=== PATIENT | female | born 2000 | race Hispanic/Latino ===

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

== ENCOUNTER 2021-03-18 16:10 | Emergency (ER) | payer MEDICAID ==
[~2021-03-18] VITALS: Ht 165.1 cm; Wt 72.6 kg
[2021-03-18 16:13] VITALS: BP 132/77
[2021-03-18] MEDS ORDERED: KETOROLAC 60 MG VIAL (30MG/ML) IM ONE (17:00)
[2021-03-18] MEDS ORDERED: ACET-2247 PO (17:12)
[2021-03-18] MEDS ORDERED: ACETAMINOPHEN 500 MG TABLET PO ONE (17:30)
== END 2021-03-18 17:22 | disposition home or self-care (01) ==
LOC: EDH 16:10
DX: R07.89 Other chest pain (principal); Z33.1 Pregnant state, incidental; Z79.1 Long term (current) use of non-steroidal anti-inflammatories (NSAID)
CPT/HCPCS: 81025; 99283; J1885

== ENCOUNTER 2022-01-13 12:52 | Emergency (ER) | payer MEDICAID ==
[~2022-01-13] VITALS: Ht 165.1 cm; Wt 90.3 kg
[~2022-01-13 12:52] MED LIST: ACET-2247 PO
[2022-01-13 13:27] LABS: BASOPHILS % (AUTO) 0.6 % (0.0-5.0); EOSINOPHILS % (AUTO) 2.7 % (0.0-8.0); HEMATOCRIT 36.1 % (36-48); LYMPHOCYTES % (AUTO) 37.8 % (21.0-51.0); MEAN CORPUSCULAR HEMOGLOBIN 22.8 pg (27.0-33.0); MEAN CORPUSCULAR HGB CONC 30.5 g/dL (32.0-36.0); MEAN CORPUSCULAR VOLUME 74.9 fL (80-100); MONOCYTES % (AUTO) 6.6 % (3.0-13.0); NEUTROPHILS % (AUTO) 51.8 % (40.0-77.0); PLATELET COUNT (AUTO) 354 K/uL (130-400); RED BLOOD CELL COUNT(AUTO) 4.82 MIL/uL (4.00-5.50); RED CELL DISTRIBUTION WIDTH 16.2 % (11.0-15.5); WHITE BLOOD COUNT (AUTO) 8.8 K/uL (4.8-10.8)
[2022-01-13 13:28] LABS: APPEARANCE,URINE CLEAR (CLEAR); BILIRUBIN,URINE NEGATIVE (NEGATIVE); COLOR,URINE YELLOW (YELLOW); GLUCOSE, URINE (UA) NEGATIVE (NEGATIVE); KETONES,URINE NEGATIVE (NEGATIVE); LEUKOCYTE ESTERASE ,URINE NEGATIVE (NEGATIVE); NITRATE,URINE NEGATIVE (NEGATIVE); OCCULT BLOOD,URINE NEGATIVE (NEGATIVE); PROTEIN,URINE NEGATIVE (NEGATIVE); UROBILINOGEN,URINE 0.2 mg/dL (0.2-1.0)
[2022-01-13] MEDS ORDERED: MECLIZINE HCL 25 MG TABLET PO ONE (13:30)
[2022-01-13 13:37] LABS: CREATININE 0.8 mg/dL (0.5-1.5); POTASSIUM 4.3 mmol/L (3.5-5.1)
[2022-01-13 13:42] LABS: ALBUMIN 3.4 g/dL (3.5-5.0); TOTAL PROTEIN, SERUM 7.7 g/dL (6.0-8.3)
[2022-01-13 13:42] LABS: HCG,QUALITATIVE URINE NEGATIVE (NEGATIVE)
[2022-01-13] MEDS ORDERED: MECL-226 PO (14:09)
[2022-01-13 14:41] VITALS: BP 124/69
== END 2022-01-13 14:41 | disposition home or self-care (01) ==
LOC: EDH 12:52
DX: R42 Dizziness and giddiness (principal); I10 Essential (primary) hypertension; E66.9 Obesity, unspecified; Z68.33 Body mass index [BMI] 33.0-33.9, adult; Z20.822 Contact with and (suspected) exposure to COVID-19
CPT/HCPCS: 99283; 87635; 84484; 80053; 85025; 81003; 81025; 36415; C9803